=== PATIENT | male | born 1980 | race Caucasian/White ===

== ENCOUNTER 2025-08-21 22:17 | Emergency (ER) | payer BC ==
[~2025-08-21] VITALS: Ht 182.9 cm; Wt 81.6 kg
[2025-08-21 22:17] VITALS: BP 130/90
[2025-08-21] MEDS ORDERED: HYDROCODONE/APAP 10-325 MG TABLET ONE (22:41)
[2025-08-21] MEDS: HYDROCODONE/APAP 10-325 MG TABLET PO ONE (22:44)
[2025-08-21] MEDS ORDERED: HYDR-4209 PO (23:25)
[2025-08-21 23:45] VITALS: BP 130/90; O2SAT 98
== END 2025-08-21 23:47 | disposition home or self-care (01) ==
LOC: ER 22:34
DX: S93.401A Sprain of unspecified ligament of right ankle, initial encounter (principal); K50.90 Crohn's disease, unspecified, without complications; Z90.49 Acquired absence of other specified parts of digestive tract; X50.1XXA Overexertion from prolonged static or awkward postures, initial encounter; Y93.01 Activity, walking, marching and hiking; Y92.89 Other specified places as the place of occurrence of the external cause; Y99.8 Other external cause status
CPT/HCPCS: 73610; A4606; A4663